=== PATIENT | female | born 1975 | race Caucasian/White ===

== ENCOUNTER 2017-10-13 06:21 | Emergency (ER) | payer OTHER ==
[~2017-10-13] VITALS: Ht 157.5 cm; Wt 86.0 kg
--- NOTE | 2017-10-13 06:47 | PHYS DOC ---
Past History Past Medical History: No Pertinent History Additional Past Surgical Histo: hernia Alcohol Use: Rarely Adult General HPI HPI Patient is a 41-year-old female who presents to the emergency department for evaluation. She states that she began experiencing some abdominal cramping diffusely on Tuesday, which has gradually worsened. She states she developed some nonbloody diarrhea today. He denies any recent travel or antibiotic use. She has had nausea as well, and complains of worsening diffuse abdominal pain. She states she has had subjective fevers on and off for the past few days. She has not had any vomiting or urinary symptoms. She denies any vaginal bleeding or discharge. Movement and palpation of her abdomen worsens her pain. There are no alleviating factors to her symptoms. Review of Systems Review of Systems Constitutional: Reports subjective fevers.[] Eyes: Denies change in visual acuity, redness, or eye pain [] HENT: Denies nasal congestion or sore throat [] Respiratory: Denies cough or shortness of breath [] Cardiovascular:The patient denies any shortness of breath, chest pain, palpitations, or orthopnea [] Gastrointestinal: No additional information not addressed in HPI : Denies dysuria or hematuria [] Musculoskeletal: Denies back pain or joint pain [] Integument: Denies rash or skin lesions [] Neurologic: Denies headache, focal weakness or sensory changes [] Endocrine: Denies polyuria or polydipsia [] All other systems were reviewed and found to be within normal limits, except as documented in this note. Current Medications Current Medications Current Medications Medications (Trade) Dose Ordered Sig/Kendell Start Time Stop Time Status Last Admin Dose Admin Fentanyl Citrate (Fentanyl 2ml Vial) 50 mcg PRN Q15MIN PRN 10/13/17 06:45 10/14/17 06:44 UNV Physical Exam Physical Exam PHYSICAL EXAM: CONSTITUTIONAL: Well developed, well nourished HEAD: normocephalic, atraumatic EENT: PERRL, EOMI. Conjunctivae normal color, sclerae non-icteric; moist mucous membranes. NECK: Supple, non-tender; no meningismus. LUNGS: Lungs CTA, breathing even and unlabored. Normal air movement. HEART: Regular rate and rhythm, no murmur CHEST: No deformity; non-tender ABDOMEN: The abdomen is soft, bowel sounds are diminished, there is diffuse tenderness to palpation of the entire abdomen, worse in the lower abdomen and specifically in the suprapubic area, there is rebound tenderness, with some guarding as well. No palpable masses or bruits. EXTREM: Normal ROM; no deformity, no calf tenderness. Normal pulses palpable in all extremities. There is no pedal edema. SKIN: No rash; no diaphoresis NEURO: Alert; normal speech and cognition; CN's grossly intact; strength grossly intact without focal deficit. BACK: No CVA TTP. PELVIC EXAM: Normal external genitalia. There is no significant vaginal discharge. The nulliparous cervix appears normal. There is no cervical motion tenderness. There is no definite adnexal tenderness although there is diffuse lower abdominal tenderness, more prominent in the right lower quadrant. Exam was performed in the presence of the patient's nurse, Adrienne, acting as feed research technician. EKG EKG [] Radiology/Procedures Radiology/Procedures [PROCEDURE: CT ABD PELV W/ IV CONTRST ONLY Indication: Lower abdominal pain and tenderness. Technique: Axial images and coronal and sagittal reformatted images are provided. 75 mL of intravenous Omnipaque 300 was administered without complication. No comparison is available. One or more of the following individualized dose reduction techniques were utilized for this examination: 1. Automated exposure control 2. Adjustment of the mA and/or kV according to patient size 3. Use of iterative reconstruction technique Findings: There is atelectasis in the right lung base. There is no pleural effusion. Heart is not enlarged. There is a low-density lesion in the posterior segment right hepatic lobe measuring 21 mm in size, does not appear to be a simple cyst. Gallbladder is unremarkable. Spleen is not enlarged. Pancreas and adrenals are unremarkable. Kidneys are symmetrically perfused. Lack of oral contrast limits evaluation of bowel. There is no dilated small bowel loop or mural thickening. The appendix is dilated at 12 mm. There is a small appendicolith at the base of the appendix measuring 4 mm and probably a second appendicolith within the appendix lumen. Appendix extends down towards the pelvis. There is adjacent stranding and there is wall hyperemia. There is no abscess or free air. Colon is grossly unremarkable. Free pelvic fluid may be physiologic or related to the appendicitis. This fluid measures water density. Bladder is unremarkable allowing for degree of distention. A few calcified phleboliths are noted. There is no adnexal mass. There is a simple cyst or follicle in the left ovary measuring 3 cm. IMPRESSION: 1. Findings of acute appendicitis, likely with 2 appendicoliths present. There is no evidence of abscess or free air. 2. There is an indeterminant hepatic lesion for which nonemergent ultrasound would be the first step in further evaluation. ] Course & Med Decision Making Course & Med Decision Making Pertinent Labs and Imaging studies reviewed. (See chart for details) [8:10 AM: The patient's condition remained stable. I discussed the case with Dr. Pulido, surgeon on-call at [facility], who accepted the patient in transfer. I discussed the diagnosis and plan of care with the patient.] Dragon Disclaimer Dragon Disclaimer This electronic medical record was generated, in whole or in part, using a voice recognition dictation system. Departure Departure: Impression: Primary Impression: Acute appendicitis Disposition: 02 XFER SHT-TRM HOSP Condition: STABLE Referrals: PCP,UNKNOWN (PCP) ALEXUS SHIELDS MD Oct 13, 2017 06:47
[2017-10-13 06:55] LABS: BACTERIA,URINE FEW /HPF (0-FEW); BILIRUBIN,URINE NEG (NEG); CLARITY,URINE CLEAR; COLOR,URINE YELLOW; GLUCOSE,URINE NEG (NEG); NITRITE,URINE NEG (NEG); RBC,URINE 0 /HPF (0-2); SQUAMOUS EPITHELIAL CELL,UR MANY /LPF; UROBILINOGEN,URINE 0.2 mg/dL (0.2 mg/dL); WBC,URINE OCC /HPF (0-4)
[2017-10-13 06:56] LABS: U PREG PATIENT NEGATIVE (NEG)
[2017-10-13] MEDS ORDERED: ONDANSETRON PF 4 MG/2 ML VIAL. IV ONE (07:00)
[2017-10-13] MEDS ORDERED: IOHEXOL 300 MG/ML 75 ML VIAL. IV ONE (07:00)
[2017-10-13] MEDS ORDERED: IV NORMAL SALINE 1,000ML 1,000 ML IV SCH (07:00)
[2017-10-13] MEDS ORDERED: CONTRAST GIVEN MC PRN (07:15)
[2017-10-13 07:36] LABS: BASO # 0.1 x10^3/uL (0.0-0.2); BASO % 1 % (0-3); EOS % 1 % (0-3); HEMATOCRIT 42.2 % (36.0-47.0); HEMOGLOBIN 14.3 g/dL (12.0-15.5); LYMPH # 1.1 x10^3/uL (1.0-4.8); LYMPH % 11 % (24-48); MEAN CORPUSCULAR HEMOGLOBIN 30 pg (25-35); MEAN CORPUSCULAR HGB CONC 34 g/dL (31-37); MEAN CORPUSCULAR VOLUME 89 fL (79-100); MONO # 0.5 x10^3/uL (0.0-1.1); MONO % 5 % (0-9); NEUT # 8.1 x10^3uL (1.8-7.7); NEUT % 83 % (31-73); PLATELET COUNT 243 x10^3/uL (140-400); RED BLOOD COUNT 4.77 x10^6/uL (3.50-5.40); RED CELL DISTRIBUTION WIDTH 13.2 % (11.5-14.5); WHITE BLOOD COUNT 9.8 x10^3/uL (4.0-11.0)
--- NOTE | 2017-10-13 07:59 | RAD ---
Indication: Lower abdominal pain and tenderness. Technique: Axial images and coronal and sagittal reformatted images are provided. 75 mL of intravenous Omnipaque 300 was administered without complication. No comparison is available. One or more of the following individualized dose reduction techniques were utilized for this examination: 1. Automated exposure control 2. Adjustment of the mA and/or kV according to patient size 3. Use of iterative reconstruction technique Findings: There is atelectasis in the right lung base. There is no pleural effusion. Heart is not enlarged. There is a low-density lesion in the posterior segment right hepatic lobe measuring 21 mm in size, does not appear to be a simple cyst. Gallbladder is unremarkable. Spleen is not enlarged. Pancreas and adrenals are unremarkable. Kidneys are symmetrically perfused. Lack of oral contrast limits evaluation of bowel. There is no dilated small bowel loop or mural thickening. The appendix is dilated at 12 mm. There is a small appendicolith at the base of the appendix measuring 4 mm and probably a second appendicolith within the appendix lumen. Appendix extends down towards the pelvis. There is adjacent stranding and there is wall hyperemia. There is no abscess or free air. Colon is grossly unremarkable. Free pelvic fluid may be physiologic or related to the appendicitis. This fluid measures water density. Bladder is unremarkable allowing for degree of distention. A few calcified phleboliths are noted. There is no adnexal mass. There is a simple cyst or follicle in the left ovary measuring 3 cm. IMPRESSION: 1. Findings of acute appendicitis, likely with 2 appendicoliths present. There is no evidence of abscess or free air. 2. There is an indeterminant hepatic lesion for which nonemergent ultrasound would be the first step in further evaluation. Electronically signed by: Dayne Brandt MD (10/13/2017 7:56 AM) [facility]
[2017-10-13 08:05] LABS: ALBUMIN 2.7 g/dL (3.4-5.0); ALBUMIN/GLOBULIN RATIO 0.7 (1.0-1.7); CALCIUM 8.1 mg/dL (8.5-10.1); CREATININE 0.7 mg/dL (0.6-1.0); GFR 93.2; POTASSIUM 3.8 mmol/L (3.5-5.1); TOTAL BILIRUBIN 0.3 mg/dL (0.2-1.0); TOTAL PROTEIN 6.7 g/dL (6.4-8.2)
[2017-10-13] MEDS ORDERED: IV NORMAL SALINE 50ML 50 ML ONE (08:11)
[2017-10-13 09:30] VITALS: BP 129/84
[2017-10-14 16:10] LABS: CHLAMYDIA PROBE Negative (Negative)
== END 2017-10-13 09:51 | disposition short-term general hospital (02) ==
LOC: ER 06:21
DX: K35.80 Unspecified acute appendicitis (principal)
CPT/HCPCS: 36415; 74177; 80053; 81001; 81025; 83690; 85025; 87491; 87591; 96361; 96365; 96375; 96376; 99285; J0694; J2405; J3010; Q0111; Q9967; J7030

== ENCOUNTER → 2017-11-03 | Outpatient (CLI) | payer OTHER ==
[2017-10-13 09:30] VITALS: BP 129/84
--- NOTE | 2017-11-03 16:02 | RAD ---
Complete abdominal ultrasound History: Low density liver mass on recent CT. Comparison: CT abdomen pelvis November 03, 2017. Procedure: Transabdominal ultrasound images are obtained. Findings: Visualized pancreas is unremarkable. Liver is normal in echogenicity. Posterior right hepatic lobe demonstrates mildly hyperechoic mass measuring 2.[address] findings, this is favored to represent hemangioma. Right lobe of the liver measures 16.3 cm. Gallbladder has an unremarkable appearance. Common bile duct measures normally at 5 mm in diameter. Spleen is homogeneous and measures 8.1 cm in length. Right kidney is normal in size and configuration without hydronephrosis. Left kidney is normal in size and configuration without hydronephrosis. Visualized portions of the aorta and IVC have normal caliber. Impression: 1. Hyperechoic lesion is seen in the posterior right hepatic lobe which corresponds to low density lesion on comparison CT. This is favored to represent hemangioma, benign entity. 2. Otherwise, unremarkable ultrasound of the abdomen. Electronically signed by: Thiago Scott MD (11/03/2017 3:59 PM) [place] [id number]
== END | disposition home or self-care (01) ==
LOC: US 14:44
PROVIDERS: ATTEND Surgery
DX: K76.89 Other specified diseases of liver (principal)
CPT/HCPCS: 76700